=== PATIENT | male | born 1985 | race Caucasian/White ===

== ENCOUNTER 2021-06-01 15:42 | Emergency (ER) | payer OTHER ==
[2021-06-01] MEDS ORDERED: TORAdol 30 mg Injection IM ONE (16:08)
[2021-06-01] MEDS ORDERED: TORAdol 30 mg Injection ONE (16:10)
[2021-06-01 17:48] VITALS: O2SAT 98
[2021-06-01] MEDS ORDERED: MORPHINE SULFATE 4 MG INJ IM ONE (17:49)
[2021-06-01] MEDS ORDERED: MORPHINE SULFATE 4 MG INJ ONE (17:52)
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
--- NOTE | 2021-06-01 18:10 | XRAY ---
Indication: Pain following fall. Comparison: None 3 view left wrist demonstrates mildly displaced/comminuted distal radius fracture with intra-articular extension and soft tissue swelling. No other bony, articular, or soft tissue abnormalities.
--- NOTE | 2021-06-01 18:10 | XRAY ---
Indication: Pain following fall. Comparison: None 2 view left forearm demonstrates mildly displaced/comminuted distal radius fracture with intra-articular extension and soft tissue swelling. No other bony, articular, or soft tissue abnormalities.
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
[2021-06-01] MEDS ORDERED: NORCO 5/325 MG PO ONE (18:25)
[2021-06-01] MEDS ORDERED: NORCO 5/325 MG ONE (18:28)
[2021-06-01] MEDS ORDERED: ZOFRAN ODT 4 MG ONE (18:28)
[2021-06-01] MEDS ORDERED: ZOFRAN ODT 4 MG PO ONE (18:32)
[2021-06-01 18:40] VITALS: BP 136/89; PULSE 73
== END 2021-06-01 18:44 | disposition home or self-care (01) ==
LOC: ED 15:42
DX: S52.572A Other intraarticular fracture of lower end of left radius, initial encounter for closed fracture (principal); S29.011A Strain of muscle and tendon of front wall of thorax, initial encounter; X50.0XXA Overexertion from strenuous movement or load, initial encounter; W28.XXXA Contact with powered lawn mower, initial encounter
CPT/HCPCS: 29126; 71046; 73090; 73110; 96372; 99284; J1885; J2270; Q0162; A9270-GY

== ENCOUNTER 2022-11-23 12:19 | Day surgery (SDC) | payer OTHER ==
--- NOTE | 2022-11-23 09:49 | HP ---
DATE OF SURGERY: 11/23/2022 HISTORY OF PRESENT ILLNESS: The patient is a 37-year-old who has enlarging bulge in his abdomen that has been going on for a while, bigger now and more sore. PAST MEDICAL HISTORY: Sinus infection. Heartburn in the past. PAST SURGICAL HISTORY: Wrist surgery. Inguinal hernia repair in the past. Vasectomy. MEDICATIONS: Prilosec. ALLERGIES: CODEINE. FAMILY HISTORY: Heart disease. SOCIAL HISTORY: Former smoker. No alcohol abuse. REVIEW OF SYSTEMS: Fourteen systems reviewed. No chest pain or palpitations. Other systems negative or noncontributory as above and per preadmission questionnaire. PHYSICAL EXAMINATION: Height 5'9". BMI 30.27. GENERAL: No acute distress. HEENT: Sclerae nonicteric. NECK: No JVD. CHEST: Equal excursion, nonlabored breathing. CVS: Regular rate and rhythm. ABDOMEN: Soft. Mid abdomen bulge consistent with incarcerated hernia. EXTREMITIES: No significant edema. NEURO: Alert, oriented, moving extremities symmetrically. No gross motor deficits noted. PSYCH: Appropriate mood and affect. SKIN: Dry. IMPRESSION: Incarcerated ventral hernia. I feel he would benefit from repair. Discussed options of open versus laparoscopic-assisted repair of incarcerated ventral hernia with mesh possible open. General risk of bleeding or infection, hematoma or seroma, trocar injury, bowel, bladder or blood vessel injury, risk of mesh infection possibly requiring removal. Risk of aches, pain, burning or numbness possibly chronic in nature, risk of adhesion, scar formation, bowel obstruction, risk of ileus. Risk of mesh fracture or failure or erosion possibly creating issue with the viscera or other structures, risk of ongoing morbidity or mortality, possible need for other procedure. General risk of anesthesia, deep venous thrombosis, pulmonary embolism, pneumonia but not limited to. The patient understands all of the above as well as possible open procedure. Will proceed with laparoscopic repair of incarcerated ventral hernia with mesh possible open as an outpatient.
[~2022-11-23 12:19] MED LIST: Sensorcaine 0.25% 10 ML ONE
[2022-11-23] MEDS ORDERED: Lactated Ringers 1,000 ML IV SCH (12:30)
[2022-11-23] MEDS ORDERED: CEFAZOLIN 2 GM-D5W BAG** 2 GM/50 ML ML IV SCH (12:30)
[2022-11-23] MEDS ORDERED: Lactated Ringers 1,000 ML IV ONE ×2 (13:00→13:47)
[2022-11-23] MEDS ORDERED: CEFAZOLIN 2 GM-D5W BAG** 2 GM/50 ML ML IV ONE (13:00)
[2022-11-23] MEDS ORDERED: Versed 2 MG/2 ML Injection ONE ×2 (13:30→14:07)
[2022-11-23] MEDS ORDERED: BRIDION 200MG/2ML IV ONE (13:40)
[2022-11-23] MEDS ORDERED: Decadron 4 MG INJ ONE ×2 (13:40→13:53)
[2022-11-23] MEDS ORDERED: TORAdol 30 mg Injection ONE (13:40)
[2022-11-23] MEDS ORDERED: Zofran 4 MG/2 ML VIAL ONE ×2 (13:40→16:49)
[2022-11-23] MEDS ORDERED: Zemuron 100 MG/10 ML ONE ×2 (13:40→15:03)
[2022-11-23] MEDS ORDERED: Xylocaine-Mpf 2% 5 Ml Vial ONE (13:40)
[2022-11-23] MEDS ORDERED: DIPRIVAN 200 MG/20 ML IV ONE (13:40)
[2022-11-23] MEDS ORDERED: SUBLIMAZE 250 MCG/5 ML ONE (13:41)
[2022-11-23] MEDS ORDERED: OFIRMEV 100 ML IV ONE (13:47)
[2022-11-23] MEDS ORDERED: Sensorcaine 0.25% 10 ML ONE (13:47)
[2022-11-23] MEDS ORDERED: DEXMEDETOMIDINE 80 MCG/20ML-NS IV ONE (13:53)
[2022-11-23] MEDS ORDERED: Marcaine 0.5%/Epinephrine 10 ML ONE (13:53)
[2022-11-23] MEDS ORDERED: SUBLIMAZE 100 MCG/2 ML ONE (15:54)
[2022-11-23] MEDS ORDERED: MORPHINE SULFATE 4 MG INJ IV PRN (16:47)
[2022-11-23] MEDS ORDERED: Zofran 4 MG/2 ML VIAL IV STA (16:48)
[2022-11-23] MEDS ORDERED: NORCO 5/325 MG PO PRN (16:48)
[2022-11-23] MEDS ORDERED: NORCO 5/325 MG ONE (16:49)
[2022-11-23 17:17] VITALS: BP 119/76; PULSE 65; O2SAT 95
[2022-11-23 18:12] LABS: Appearance Turbid (Clear); Bacteria None Seen /HPF (None Seen); Bilirubin Negative (Negative); Blood Negative (Negative); Epithelial Cells None Seen /HPF (None Seen); Glucose, Urine Negative (Negative); Hyaline Casts NONE SEEN /LPF (0-2); Ketones Negative (Negative); Leukocyte Esterase Negative (Negative); Nitrite Negative (Negative); Protein,Urine Dip Negative (Negative); RBC 0-2 /HPF (0-5)
--- NOTE | 2022-11-24 09:19 | OP ---
SURGERY DATE/TIME: 11/23/2022 1413 PREOPERATIVE DIAGNOSIS: Symptomatic incarcerated ventral hernia. POSTOPERATIVE DIAGNOSIS: Symptomatic incarcerated ventral hernia. PROCEDURE: Laparoscopic-assisted repair incarcerated ventral hernia with mesh (approximately 4 cm). SURGEON: Dr. Krishna Hand. ANESTHESIA: General. ESTIMATED BLOOD LOSS: Minimal. INDICATIONS: As noted above. Risks and benefits explained in detail and not limited to and consent obtained. The site was confirmed with him in the preoperative holding area. DESCRIPTION OF PROCEDURE AND FINDINGS: He is taken to the operating room. General anesthesia induced. The abdomen is prepped and draped in the usual sterile fashion. After official time out and no disagreement with planned procedure, a transverse incision made in the left upper quadrant. Fascia grasped and pulled upwards. Veress needle inserted and tested with saline. Pneumoperitoneum accomplished opening pressure 0 to 15. A 5 mm bladeless port and camera inserted without difficulty. There is no evidence of any intra-abdominal injury secondary to trocar insertion. A 5 mm right mid abdomen port is placed as well as lateral left mid abdomen 5 mm port, left lower quadrant 5 mm port was replaced under direct vision of the camera at this point switching to an angled lens. Preperitoneal space carefully entered and carefully dissecting circumferentially around the hernia defect. There was a large amount of incarcerated omentum and preperitoneal fat up in this hernia that was slowly and carefully reduced. Once it was reduced, the defect is measured with the aid of a spinal needle a 4 cm defect. Fascial defect brought back to the midline. It was felt the most appropriate size to allow for adequate overlap in all directions was the [address] Echo mesh carefully marked on the abdominal wall, four quadrant 0 Ethibond stay sutures were placed. At this point a transverse incision was made dissection carried around the external part of the hernia sac with the #1 Vicryl suture passer with interrupted transfascial sutures placed to temporarily tag with #1 Vicryl to bring the two fascial edges back to the midline. These were temporary tags. The port was carefully placed through the defect. The mesh carefully wet and rolled and placed in the abdomen. Pressure was then turned down to 8. Transfascial sutures were gently closed with #1 Vicryl to carefully close to bring the fascia back to midline. Once this is accomplished, the balloon catheter is pulled up centered in the mesh and four quadrant 0 Ethibond pulled up the four stab wounds and tied transfascially the four quadrant stab wounds. Mesh is nice and flat in tension-free manner. The pressure is released. At this point the balloon catheter far edge is tacked 1 cm apart with a CapSure Tacker. The balloon catheter is carefully decompressed, pulled free intact and passed off. The CapSure Tacker was then placed through the right side port and then tacked to the left edge of the mesh 1 cm apart on the periphery. Once this was done the mesh is nice and flat. Additional CapSure Tacker used more centrally to reduce space to reduce risk of seroma formation and this was done with SorbaFix Tacker more centrally. The omentum and preperitoneal fat had been reduced. Good hemostasis. There is no evidence of any visceral issues. At this point the mesh nice and flat in tension-free manner. Pneumoperitoneum decompressed. Ports removed. Subcu closed with 3-0 Vicryl. The skin closed with 4-0 Vicryl. The lateral port incision closed with 4-0 Vicryl. Steri-Strips and sterile dressing applied. 0.25% Marcaine local had been injected along the skin incisions. Anesthesia applied tap blocks. There were no immediate complications. Findings discussed with the family out in the waiting area.
== END 2022-11-23 17:30 | disposition home or self-care (01) ==
LOC: SDC 12:19
PROVIDERS: ATTEND Surgery
DX: K43.6 Other and unspecified ventral hernia with obstruction, without gangrene (principal)
CPT/HCPCS: 64488; 76937; 81001; 87086; J0690; J1100; J1885; J2250; J2270; J2405; J2704; J3010; L0625; A9270-GY; C1781